=== PATIENT | female | born 1990 | race Caucasian/White ===

== ENCOUNTER 2017-01-26 02:11 | Outpatient (CLI) | payer MEDICAID ==
[2017-01-26 02:45] VITALS: BP 122/87
== END 2017-01-26 03:07 | disposition home or self-care (01) ==
LOC: TRG 02:11
PROVIDERS: ATTEND Obstetrics & Gynecology
DX: O48.0 Post-term pregnancy (principal); Z3A.40 40 weeks gestation of pregnancy
CPT/HCPCS: 59025

== ENCOUNTER 2020-06-12 10:44 | Outpatient (CLI) | payer MEDICAID, OTHER ==
[2020-06-12 11:07] VITALS: BP 103/71
--- NOTE | 2020-06-12 13:07 | Ultrasound Report ---
Limited OB Ultrasound Biophysical profile HISTORY: well being. TECHNIQUE: Grayscale and color imaging performed. COMPARISON: None FINDINGS: There is a single viable intrauterine gestation with cephalic presentation and ANETTE of 14 cm . Placenta is positioned anteriorly with no evidence of placenta previa. Heart rate is 143 bpm. On biophysical profile, the fetus received a score of 2 out of 2 for breathing, movement, posture/ton e, and qualitative ANETTE. Total score was 8 out of 8. IMPRESSION: 1. Single viable intrauterine gestation as above. No evidence of placental abruption. 2. Normal biophysical profile. Signer Name: Reza Bañuelos MD Signed: 06/12/2020 1:02 PM Workstation Name: [id number]
== END 2020-06-12 13:10 | disposition home or self-care (01) ==
LOC: TRG 10:44 → APU 10:45 → TRG 13:10
PROVIDERS: ATTEND Obstetrics & Gynecology
DX: O26.893 Other specified pregnancy related conditions, third trimester (principal); X58.XXXA Exposure to other specified factors, initial encounter; Y93.89 Activity, other specified; Y92.89 Other specified places as the place of occurrence of the external cause; Y99.8 Other external cause status; Z3A.39 39 weeks gestation of pregnancy
CPT/HCPCS: 59025; 76815; 76819

== ENCOUNTER 2020-06-12 13:26 | Emergency (ER) | payer OTHER ==
[2020-06-12 13:46] VITALS: BP 103/71
--- NOTE | 2020-06-12 14:20 | Emergency Department Report ---
ED Upper Extremity Inj HPI - General Chief Complaint: Extremity Injury, Upper Stated Complaint: HAND INJRY Time Seen by Provider: 06/12/20 14:15 Source: patient, personal banker (deb patient cash application representative) Mode of arrival: Ambulatory Limitations: Language Barrier - History of Present Illness Initial Comments: Deb, patient cash application representative used for Omani interpretation Patient is a 29-year-old female presents emergency room with complaints of a right ring finger injury that occurred just prior to arrival. The patient states that she accidentally slipped and fell on some water in her house and caught herself with her right hand and then had an injury to her right ring finger. She denies any other injury. She states that she is not able to move the finger. She denies any numbness or weakness. She denies ever injuring this hand or fingers in the past. She denies hitting her head, loss of consciousness, numbness, weakness, bowel or bladder incontinence, any other injury. Patient is currently 39 weeks and scheduled for a tomorrow. Denies any abdominal pain or vaginal bleeding and denies hitting her abdomen. No past medical history. No allergies to medications. - Related Data Home Medications Medication Instructions Recorded Confirmed Last Taken Caplet 1 mg PO DAILY 01/26/17 01/26/17 01/25/17 10:00 1 Previous Rx's Medication Instructions Recorded Last Taken Type Docusate Sodium [Colace] 100 mg PO BID PRN #30 capsule 01/29/17 Unknown Rx Ferrous Sulfate [Feosol 325 MG tab] 325 mg PO BID #60 tablet 01/29/17 Unknown Rx Ibuprofen [Motrin] 600 mg PO Q8H PRN #30 tablet 01/29/17 Unknown Rx oxyCODONE /ACETAMINOPHEN [Percocet 1 tab PO Q6HR PRN #30 tablet 01/29/17 Unknown Rx 5/325] Acetaminophen [Tylenol] 650 mg PO Q8HR PRN #20 capsule 06/12/20 Unknown Rx Allergies Allergy/AdvReac Type Severity Reaction Status Date / Time No Known Allergies Allergy Verified 01/26/17 02:19 ED Review of Systems ROS: Stated complaint: HAND INJRY Other details as noted in HPI Comment: All other systems reviewed and negative ED Past Medical Hx - Past Medical History Previous Medical History?: No Hx Hypertension: No Hx Congestive Heart Failure: No Hx Diabetes: No Hx Deep Vein Thrombosis: No Hx Renal Disease: No Hx Sickle Cell Disease: No Hx Seizures: No Hx Asthma: No Hx COPD: No Hx HIV: No - Surgical History Past Surgical History?: No - Social History Smoking Status: Never Smoker - Medications Home Medications: Home Medications Medication Instructions Recorded Confirmed Last Taken Type Caplet 1 mg PO DAILY 01/26/17 01/26/17 01/25/17 10:00 History 1 Docusate Sodium [Colace] 100 mg PO BID PRN #30 capsule 01/29/17 Unknown Rx Ferrous Sulfate [Feosol 325 MG tab] 325 mg PO BID #60 tablet 01/29/17 Unknown Rx Ibuprofen [Motrin] 600 mg PO Q8H PRN #30 tablet 01/29/17 Unknown Rx oxyCODONE /ACETAMINOPHEN [Percocet 1 tab PO Q6HR PRN #30 tablet 01/29/17 Unknown Rx 5/325] Acetaminophen [Tylenol] 650 mg PO Q8HR PRN #20 capsule 06/12/20 Unknown Rx ED Physical Exam - General Limitations: No Limitations General appearance: alert, in no apparent distress - Head Head exam: Present: atraumatic, normocephalic - Eye Eye exam: Present: normal appearance, PERRL, EOMI. Absent: periorbital swelling, periorbital tenderness - ENT ENT exam: Present: mucous membranes moist - Respiratory Respiratory exam: Present: normal lung sounds bilaterally. Absent: respiratory distress, wheezes, rales, rhonchi, stridor, chest wall tenderness, accessory muscle use, decreased breath sounds, prolonged expiratory - Cardiovascular Cardiovascular Exam: Present: regular rate, normal rhythm, normal heart sounds. Absent: systolic murmur, diastolic murmur, rubs, gallop - GI/Abdominal GI/Abdominal exam: Present: soft. Absent: distended, tenderness, guarding, rebound, rigid - Extremities Exam Extremities exam: Present: other (obvious deformity to the right ring finger DIP joint with ttp, pt is unable to move the DIP joint and it is currently in the flexed position, no ttp to the other digits, hand, or wrist, neurovascularly intact) - Neurological Exam Neurological exam: Present: alert, oriented X3 - Psychiatric Psychiatric exam: Present: normal affect, normal mood - Skin Skin exam: Present: warm, dry, intact ED Course Vital Signs 06/12/20 13:45 Temperature 98 F Pulse Rate 100 H Respiratory 18 Rate Blood Pressure 103/71 [Right] O2 Sat by Pulse 98 Oximetry - Orthopedic Fracture Reduction Fracture #1 Consent Obtained: verbal consent Time Out Performed: Yes Side: right Fracture Reduction Location: finger (ring finger DIP) Analgesia: digital block Technique: direct manipulation Post Reduction X-rays Demonstrate: anatomical reduction Post-Reduction Neuro Exam: intact Post-Reduction Vascular Exam: intact Splint Applied: Yes Patient Tolerated Procedure: well, no complications Additional Comments: Area prepped with alcohol wipe, 6 cc of 1% lidocaine without epinephrine used as digital block for the right ring finger, aspirated to make sure not in the vessel, good anesthesia achieved, direct manipulation of the DIP joint with appropriate reduction into anatomical position, patient is neurovascularly intact after reduction, postreduction x-rays performed with reduction of dislocation, patient placed in finger splint by nurse and remained neurovascularly intact ED Medical Decision Making - Radiology Data Radiology results: report reviewed RIGHT RING FINGER 3 VIEWS INDICATION / CLINICAL INFORMATION: injury, right ring finger deformity COMPARISON: None available. FINDINGS: BONES and JOINT(S): An acute avulsion fracture of the base of the distal phalanx of the ring finger is noted with anterior dislocation of the DIP joint of the ring finger. No significant arthritis. SOFT TISSUES: Mild edema is noted along the distal half of the right ring finger. ADDITIONAL FINDINGS: None. IMPRESSION: Acute fracture/dislocation of the right ring finger as above. Signer Name: Deric Francisco MD Signed: 06/12/2020 2:51 PM Workstation Name: [id number] Transcribed By: MN Dictated By: Deric Francisco MD Electronically Authenticated By: Deric Francisco MD Signed Date/Time: 06/12/201450 DD/ 1450 TD/TT: RIGHT HAND 4 VIEW(S) INDICATION / CLINICAL INFORMATION: post reduction COMPARISON: 2:44 PM same day FINDINGS: BONES / JOINT(S): Acute mildly displaced mallet finger type fracture involving the dorsal aspect base of ring finger distal phalanx extending into DIP joint. The previously noted DIP dislocation has been reduced and now projects in expected position No significant arthritis. SOFT TISSUES: No significant abnormality. ADDITIONAL FINDINGS: None. Signer Name: Chandan Tillman MD Signed: 06/12/2020 3:58 PM Workstation Name: [id number] Transcribed By: TL Dictated By: Chandan Tillman MD Electronically Authenticated By: Chandan Tillman MD Signed Date/Time: 06/12/201557 DD/ 55 TD/TT: - Medical Decision Making Deb, patient cash application representative used for Omani interpretation Patient is a 29-year-old female presents emergency room with complaints of a right ring finger injury that occurred just prior to arrival. The patient states that she accidentally slipped and fell on some water in her house and caught herself with her right hand and then had an injury to her right ring finger. She denies any other injury. She states that she is not able to move the finger. She denies any numbness or weakness. She denies ever injuring this hand or fingers in the past. She denies hitting her head, loss of consciousness, numbness, weakness, bowel or bladder incontinence, any other injury. Patient is currently 39 weeks and scheduled for a tomorrow. Denies any abdominal pain or vaginal bleeding and denies hitting her abdomen. No past medical history. No allergies to medications. on exam: obvious deformity to the right ring finger DIP joint with ttp, pt is unable to move the DIP joint and it is currently in the flexed position, no ttp to the other digits, hand, or wrist, neurovascularly intact. XR right hand: An acute avulsion fracture of the base of the distal phalanx of the ring finger is noted with anterior dislocation of the DIP joint of the ring finger. No significant arthritis. SOFT TISSUES: Mild edema is noted along the distal half of the right ring finger. Reduction performed per procedure note with digital block. XR right ring finger: BONES / JOINT(S): Acute mildly displaced mallet finger type fracture involving the dorsal aspect base of ring finger distal phalanx extending into DIP joint. The previously noted DIP dislocation has been reduced and now projects in expected position No significant arthritis.SOFT TISSUES: No significant abnormality. Discussed all results with patient and patient placed in finger splint by nurse and remained neurovascularly intact. Patient given prescription for Tylenol. Discussed the importance of orthopedic follow-up with the patient. Advised patient to also follow-up with her primary care doctor or [facility]. advised pt Please take medication as prescribed. Please do not remove splint. Follow-up with orthopedic doctor. Follow-up with your primary care doctor or [facility] [facility]. Return to emergency room immediately for any new or worsening symptoms. - Differential Diagnosis strain, sprain, fx, dislocation Critical care attestation.: If time is entered above; I have spent that time in minutes in the direct care of this critically ill patient, excluding procedure time. ED Disposition Clinical Impression: Finger dislocation Qualifiers: Encounter type: initial encounter Qualified Code(s): S63.259A - Unspecified dislocation of unspecified finger, initial encounter Phalanx, distal fracture of finger Qualifiers: Encounter type: initial encounter Finger: ring finger Fracture type: closed Fracture alignment: displaced Laterality: right Qualified Code(s): S62.634A - Displaced fracture of distal phalanx of right ring finger, initial encounter for closed fracture Disposition: TO HOME OR SELFCARE Is pt being admited?: No Does the pt Need Aspirin: No Condition: Stable Instructions: Finger Fracture (ED), Finger Dislocation (ED) Additional Instructions: Please take medication as prescribed. Please do not remove splint. Follow-up with orthopedic doctor. Follow-up with your primary care doctor or [facility] [facility] [facility]. Return to emergency room immediately for any new or worsening symptoms. Holcomb los medicamentos segn lo prescrito. No quite la frula. Seguimiento con mdico ortopdico. Sly un seguimiento con kaminski mdico de atencin primaria u obstetra / gineclogo. Regrese a la juany de emergencias de inmediato ante cualquier sntoma nuevo o que empeore. Prescriptions: Acetaminophen [Tylenol] 650 mg PO Q8HR PRN #20 capsule PRN Reason: pain Referrals: PRIMARY CAREMD [Primary Care Provider] - 2-3 Days MINH JORGENSEN MD [Staff Physician] - 3-5 Days [facility] [Provider Group] - 3-5 Days Time of Disposition: 16:25 Print Language: DJIBOUTIAN
--- NOTE | 2020-06-12 14:56 | XRay Report ---
RIGHT RING FINGER 3 VIEWS INDICATION / CLINICAL INFORMATION: injury, right ring finger deformity COMPARISON: None available. FINDINGS: BONES and JOINT(S): An acute avulsion fracture of the base of the distal phalanx of the ring finger i s noted with anterior dislocation of the DIP joint of the ring finger. No significant arthritis. SOFT TISSUES: Mild edema is noted along the distal half of the right ring finger. ADDITIONAL FINDINGS: None. IMPRESSION: Acute fracture/dislocation of the right ring finger as above. Signer Name: Deric Francisco MD Signed: 06/12/2020 2:51 PM Workstation Name: [id number]
[2020-06-12] MEDS ORDERED: LIDOCAINE (1%) 10 MG/1 ML VIAL 20 ML MDV INFILTRATI ONE (14:59)
[2020-06-12] MEDS ORDERED: ACETAMINOPHEN 325 MG TAB PO ONE (14:59)
--- NOTE | 2020-06-12 16:02 | XRay Report ---
RIGHT HAND 4 VIEW(S) INDICATION / CLINICAL INFORMATION: post reduction COMPARISON: 2:44 PM same day FINDINGS: BONES / JOINT(S): Acute mildly displaced mallet finger type fracture involving the dorsal aspect base of ring finger distal phalanx extending into DIP joint. The previously noted DIP dislocation has bee n reduced and now projects in expected position No significant arthritis. SOFT TISSUES: No significant abnormality. ADDITIONAL FINDINGS: None. Signer Name: Chandan Tillman MD Signed: 06/12/2020 3:58 PM Workstation Name: [id number]
== END 2020-06-12 16:48 | disposition home or self-care (01) ==
LOC: ED 13:26
DX: S63.254A Unspecified dislocation of right ring finger, initial encounter (principal); S62.634A Displaced fracture of distal phalanx of right ring finger, initial encounter for closed fracture; Z79.899 Other long term (current) drug therapy; W19.XXXA Unspecified fall, initial encounter; Y93.89 Activity, other specified; Y92.89 Other specified places as the place of occurrence of the external cause; Y99.8 Other external cause status
CPT/HCPCS: 99283